=== PATIENT | male | born 1945 | race Caucasian/White ===

== ENCOUNTER 2016-07-06 14:44 | Outpatient (CLI) | payer MEDICARE, OTHER | END 2016-07-06 14:45 | disposition home or self-care (01) | DX: B35.1 Tinea unguium (principal); B35.3 Tinea pedis ==

== ENCOUNTER 2016-08-14 13:27 | Outpatient (CLI) | payer MEDICARE, OTHER | END 2016-08-14 13:28 | disposition home or self-care (01) | LOC: LAB 13:27 | PROVIDERS: ATTEND Nurse Practitioner Family | DX: B35.1 Tinea unguium (principal); B35.3 Tinea pedis | CPT/HCPCS: 36415; 82565; 84450; 84460 ==

== ENCOUNTER 2016-10-08 08:29 | Outpatient (CLI) | payer MEDICARE, OTHER ==
[2016-10-08 19:28] LABS: CREATININE 0.9 mg/dL (0.6-1.2)
== END 2016-10-08 08:30 | disposition home or self-care (01) ==
LOC: LAB.S 08:29
PROVIDERS: ATTEND Nurse Practitioner Family
DX: B35.1 Tinea unguium (principal); B35.3 Tinea pedis
CPT/HCPCS: 36415; 82565; 84450; 84460

== ENCOUNTER 2017-11-07 08:20 | Outpatient (CLI) | payer MEDICARE, OTHER ==
[2017-11-07 08:49] LABS: BUN - BLOOD UREA NITROGEN 18 mg/dL (6-20); CALCIUM 9.3 mg/dL (8.5-10.3); CARBON DIOXIDE - CO2 27 mmol/L (21-32); CHLORIDE 105 mmol/L (101-111); CHOLESTEROL 125 mg/dL; CREATININE 1.2 mg/dL (0.6-1.2); GFR - MDRD 60 (>89); GLUCOSE 122 mg/dL (70-100); HDL CHOLESTEROL 42 mg/dL; LDL CHOLESTEROL,CALCULATED 67 mg/dL; LDL/HDL RATIO 1.6 (<3.6); SODIUM 140 mmol/L (135-145); VLDL CHOLESTEROL 16 mg/dL
== END 2017-11-07 08:21 | disposition home or self-care (01) ==
LOC: LAB 08:20
PROVIDERS: ATTEND Internal Medicine Interventional Cardiology
DX: I25.10 Atherosclerotic heart disease of native coronary artery without angina pectoris (principal)
CPT/HCPCS: 36415; 80048; 80061; 83721

== ENCOUNTER 2017-11-18 16:30 | Outpatient (CLI) | payer MEDICARE, OTHER ==
[2017-11-18] MEDS ORDERED: GADOBUTROL 7.5 MMOL/7.5 ML VIAL ONE (16:41)
[2017-11-18] MEDS ORDERED: GADOBUTROL 7.5 MMOL/7.5 ML VIAL IVP ONE (16:56)
--- NOTE | 2017-11-19 08:51 | MRI Report ---
Reason: UNSPECIFIED DEMENTIA W/O BEHAVIORAL DISTURBANCE Procedure Date: 11/18/2017 Accession Number: [id number] / [id number] Procedure: MRI - Brain W/WO CPT Code: FULL RESULT: EXAM: MRI BRAIN WITHOUT CONTRAST EXAM DATE: 11/18/2017 05:11 PM. CLINICAL HISTORY: Dementia. COMPARISON: None. TECHNIQUE: Sagittal T1. Axial DWI. Axial T2 FLAIR with moderate motion artifact. Axial T2 with severe motion artifact. No other brain MRI imaging could be obtained. FINDINGS: The DWI sequence does not show any evidence of restricted diffusion. No evidence for mass-effect, midline shift or abnormal subdural fluid collection. At least mild diffuse atrophy. Mild to moderate nonspecific cerebral white matter disease is present, findings likely related to aging and chronic microangiopathy. Tiny T2 hyperintensity in the left cerebellum is also present consistent with remote small vessel ischemic infarct. No evidence for hydrocephalus, mild ventriculomegaly is more likely from brain volume loss/atrophy. No evidence for acute sinus or mastoid disease. No evidence for focal pathologic-appearing marrow signal changes in the skull or clivus. IMPRESSION: Motion limited study. No evidence for acute intracranial abnormality. At least mild diffuse atrophy. 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 [facility]
== END 2017-11-18 16:31 | disposition home or self-care (01) ==
LOC: DI 16:30
DX: F03.90 Unspecified dementia, unspecified severity, without behavioral disturbance, psychotic disturbance, mood disturbance, and anxiety (principal); I67.82 Cerebral ischemia
CPT/HCPCS: 70553; A9585

== ENCOUNTER 2017-12-04 13:15 | Outpatient (CLI) | payer MEDICARE, OTHER | END 2017-12-04 13:16 | disposition home or self-care (01) | LOC: RT 13:15 | PROVIDERS: ATTEND Internal Medicine Interventional Cardiology | DX: I48.91 Unspecified atrial fibrillation (principal) | CPT/HCPCS: 93005 ==

== ENCOUNTER 2018-12-02 11:35 | Outpatient (CLI) | payer MEDICARE, OTHER ==
[2018-12-02] MEDS ORDERED: IOVERSOL 320 100 ML VIAL IVP ONE ×2 (11:52→16:00)
[2018-12-02 11:56] LABS: CALCIUM 9.4 mg/dL (8.5-10.3); CREATININE 1.1 mg/dL (0.6-1.2)
--- NOTE | 2018-12-02 15:21 | CT Report ---
Reason: RENAL MASS. Procedure Date: 12/02/2018 Accession Number: [id number] / [id number] Procedure: CT - ABDOMEN W/WO CPT Code: FULL RESULT: EXAM: CT ABDOMEN WITHOUT AND WITH CONTRAST EXAM DATE: 12/02/2018 12:22 PM. HISTORY: Renal mass. COMPARISON: ABDOMEN/PELVIS W/O 10/25/2014. TECHNIQUE: Routine helical CT imaging was performed through the abdomen before and after administration of IV contrast: 100 mL Optiray 320. Enteric contrast: No. Reconstruction: Coronal and sagittal. In accordance with CT protocol optimization, one or more of the following dose reduction techniques were utilized for this exam: automated exposure control, adjustment of mA and/or KV based on patient size, or use of iterative reconstructive technique. FINDINGS: Lung Bases: Unremarkable. Liver: Normal. No masses. Gallbladder/Bile Ducts: Unremarkable. 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 Pancreas: Normal. No masses or ductal obstruction. Adrenal Glands: Normal. 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 Peritoneal Cavity/Bowel: Normal. No free fluid, free air or adenopathy. No masses or acute inflammatory process. Vasculature: No aneurysms or other significant abnormality. Bones: No significant abnormality. Other: None. 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 Recommendation: While not always symptomatic, treatment is generally indicated for tumors with a size of greater than 4 cm, especially if there is a meaningful vascular component. The recommendation for consideration of embolization therapy is generally derived from the risk of hemorrhage that is posed at this size. [facility] The call report notification system was initiated by Dr. Ramesh Chen at 03:20 PM on 12/02/2018. The above call report findings were discussed with Eveline Montanez by Dr. Ramesh Chen at 03:25 PM on 12/02/2018.
== END 2018-12-02 11:36 | disposition home or self-care (01) ==
LOC: LAB 11:35
PROVIDERS: ATTEND Registered Nurse
DX: D17.71 Benign lipomatous neoplasm of kidney (principal)
CPT/HCPCS: 36415; 74170; 80048; Q9967

== ENCOUNTER 2020-09-16 03:28 | Outpatient (CLI) | payer MEDICARE, OTHER | END 2020-09-16 03:29 | disposition EMS.NT | LOC: EMS 03:28 | DX: R44.1 Visual hallucinations (principal); R46.89 Other symptoms and signs involving appearance and behavior ==